=== PATIENT | female | born 1995 | race Caucasian/White ===

== ENCOUNTER 2018-02-11 12:23 | Emergency (ER) | payer SELFPAY ==
[2018-02-11 12:34] VITALS: BP 110/66
--- NOTE | 2018-02-11 15:48 | UC ---
Mansoor Jung Angela, scribed for Oswaldo De Santiago MD on 02/11/18 at 1248 . Skin Complaint HPI - HPI Summary HPI Summary: This pt is a 22 y/o female presenting to [facility] c/o raised area under right arm since last night. Pt notes that this "lump" is painful and red. She states that she noticed this lump last night. Denies drainage, fever, chills, nausea, vomiting. - History of Current Complaint Chief Complaint: UCSkin Time Seen by Provider: 02/11/18 12:39 Stated Complaint: RIGHT LUMP UNDER ARM Hx Obtained From: Patient Hx Last Menstrual Period: on BCP Onset/Duration: Lasting Hours, Still Present Current Severity: Moderate Pain Intensity: 5 Pain Scale Used: 0-10 Numeric Location: Other - under right arm Character: Pain, Redness, Raised Aggravating Factor(s): Nothing Alleviating Factor(s): Nothing Associated Signs & Symptoms: Positive: Tenderness. Negative: Nausea, Vomiting, Fever, Chills, Drainage - Allergy/Home Medications Allergies/Adverse Reactions: Allergies Allergy/AdvReac Type Severity Reaction Status Date / Time No Known Allergies Allergy Verified 02/11/18 12:34 Review of Systems Constitutional: Negative Skin: Other - lump under right arm, painful and red Eyes: Negative ENT: Negative Respiratory: Negative Cardiovascular: Negative Gastrointestinal: Negative Genitourinary: Negative Motor: Negative Neurovascular: Negative Musculoskeletal: Negative Neurological: Negative Psychological: Negative All Other Systems Reviewed And Are Negative: Yes PMH/Surg Hx/FS Hx/Imm Hx Other Endocrine History: DENIES: diabetes Other Cardiovascular History: DENIES: HTN Respiratory History: Asthma - Surgical History Surgical History: None Surgery Procedure, Year, and Place: R lumpectomy - Family History Known Family History: Positive: Cardiac Disease, Other - BREAST CANCER, MOTHER WITH BRAIN CYST Family History: BREAST CA, BRAIN CYST IN MOTHER, CAD - Social History Alcohol Use: None Substance Use Type: None Smoking Status (MU): Never Smoked Tobacco - Immunization History Most Recent Influenza Vaccination: 2013/2014 season Vaccination Up to Date: Yes Physical Exam - Summary Physical Exam Summary: VITAL SIGNS: Reviewed. GENERAL: Patient is a well-developed and nourished female who is lying comfortable in the stretcher. Patient is not in any acute respiratory distress. HEAD AND FACE: Normocephalic EYES: PERRLA, EOMI x 2. EARS: Hearing grossly intact. MOUTH: Oropharynx within normal limits. NECK: Supple, trachea is midline, no adenopathy, no JVD, no carotid bruit. CHEST: Symmetric, no tenderness at palpation LUNGS: Clear to auscultation bilaterally. No wheezing or crackles. CVS: Regular rate and rhythm, S1 and S2 present, no murmurs or gallops appreciated. ABDOMEN: Soft, non-tender. Bowel sounds are normal. No abdominal abnormal pulsations. EXTREMITIES: Full ROM in all major joints, no edema, no cyanosis or clubbing. NEURO: Alert and oriented x 3. No acute neurological deficits. Speech is normal and follows commands. SKIN: Dry and warm. RUE: induration under the right arm that is tender. There is redness and thickening of the skin. No abscess formation yet. Triage Information Reviewed: Yes Vital Signs: Initial Vital Signs Temp 98.6 F 02/11/18 12:31 Pulse 74 02/11/18 12:31 Resp 16 02/11/18 12:31 BP 110/66 02/11/18 12:31 Pulse Ox 100 02/11/18 12:31 Vital Signs Reviewed: Yes Course/Dx - Course Course Of Treatment: Pt is a 22 y/o female who presents with lump under right arm since last night. Pt notes that this site is painful and red. She states that she noticed this lump last night. Denies drainage, fever, chills, nausea, vomiting. On exam pt has induration under the right arm that is tender. There is redness and thickening of the skin. There is NO abscess formation. Pt will be given a prescription for Keflex. She will be discharged to home with follow up from PCP. Pt was instructed to return to the urgent care or go to ER immediately if any of the symptoms return or worsens. Plan of care was discussed with the patient and pt understands and agrees. All questions were answered to patient satisfaction. There were no further complaints or concerns. Pt is hemodynamically stable, alert and oriented x3. - Diagnoses Provider Diagnoses: Cellulitis Discharge - Sign-Out/Discharge Documenting (check all that apply): Discharge/Admit/Transfer - Discharge - Discharge Plan Condition: Stable Disposition: HOME Prescriptions: Cephalexin CAP* [Keflex CAP*] 500 mg PO QID #40 cap Patient Education Materials: Cellulitis (ED) Referrals: Harper RN [employer]IN [employer] MEMBER,Katiuska [Primary Care Provider] - Additional Instructions: Take medications as instructed Return to the UC if symptoms worsen The documentation as recorded by the Mansoor estrada Angela accurately reflects the service I personally performed and the decisions made by me, Oswaldo De Santiago MD.
== END 2018-02-11 12:58 | disposition home or self-care (01) ==
LOC: UCEAST 12:23
DX: L03.113 Cellulitis of right upper limb (principal); J45.909 Unspecified asthma, uncomplicated; Z82.49 Family history of ischemic heart disease and other diseases of the circulatory system; Z80.3 Family history of malignant neoplasm of breast
CPT/HCPCS: 99211; G0463

== ENCOUNTER 2018-02-17 14:57 | Emergency (ER) | payer SELFPAY ==
[2018-02-17 15:35] VITALS: BP 124/74
[2018-02-17] MEDS ORDERED: Lidocaine/Epineph/Tetraca SOL* (LET solution) 4 ML BTL TOPICAL ONE (15:45)
--- NOTE | 2018-02-17 15:52 | UC ---
Skin Complaint HPI - HPI Summary HPI Summary: PATIENT SEEN FOR DEVELOPING ABSCESS IN RIGHT AXILLA 6 DAYS AGO. PLACED ON KEFLEX. SINCE THEN LESION HAS INCREASED IN SIZE AND BECOME MORE PAINFUL. NO FEVER. NO DRAINAGE. - History of Current Complaint Chief Complaint: UCSkin Time Seen by Provider: 02/17/18 15:32 Stated Complaint: ARM INJURY Hx Obtained From: Patient Hx Last Menstrual Period: has control implant Onset/Duration: Gradual Onset, Lasting Days, Still Present Timing: Constant Onset Severity: Moderate Current Severity: Moderate Pain Intensity: 8 Pain Scale Used: 0-10 Numeric Location: Other - RIGHT AXILLA Character: Redness, Raised, Painful Aggravating Factor(s): Touch Alleviating Factor(s): Nothing Associated Signs & Symptoms: Positive: Tenderness. Negative: Fever - Allergy/Home Medications Allergies/Adverse Reactions: Allergies Allergy/AdvReac Type Severity Reaction Status Date / Time No Known Allergies Allergy Verified 02/17/18 15:35 Review of Systems Constitutional: Negative Skin: Other - ABSCESS RIGHT AXILLA Respiratory: Negative Cardiovascular: Negative Gastrointestinal: Negative All Other Systems Reviewed And Are Negative: Yes PMH/Surg Hx/FS Hx/Imm Hx Respiratory History: Asthma - Surgical History Surgical History: None Surgery Procedure, Year, and Place: R lumpectomy - Family History Known Family History: Positive: Cardiac Disease, Hypertension, Other - BREAST CANCER, MOTHER WITH BRAIN CYST Family History: BREAST CA, BRAIN CYST IN MOTHER, CAD - Social History Alcohol Use: None Substance Use Type: None Smoking Status (MU): Never Smoked Tobacco - Immunization History Most Recent Influenza Vaccination: season Vaccination Up to Date: Yes Physical Exam Triage Information Reviewed: Yes Appearance: Well-Appearing, No Pain Distress, Well-Nourished Vital Signs: Initial Vital Signs Temp 98.6 F 02/17/18 15:30 Pulse 76 02/17/18 15:30 Resp 18 02/17/18 15:30 BP 124/74 02/17/18 15:30 Pulse Ox 100 02/17/18 15:30 Vital Signs Reviewed: Yes Eyes: Positive: Conjunctiva Clear ENT: Positive: Hearing grossly normal Neck: Positive: Supple Respiratory: Positive: No respiratory distress, No accessory muscle use Cardiovascular: Positive: Pulses Normal Abdomen Description: Positive: Soft Musculoskeletal: Positive: No Edema Neurological: Positive: Alert Psychological: Positive: Age Appropriate Behavior Skin: Positive: Other - 4CM X 3CM TENDER INDURATED LESION RIGHT AXILLA WITH CENTRAL FLUCTUANCE. Course/Dx - Course Course Of Treatment: AXILLA CLEANSED AND TOPICAL LET APPLIED. 11 BLADE USED TO INCISE ABSCESS. PUS EXPRESSED. SPECIMEN SENT FOR CX. PLAIN PACKING. STOP KEFLEX. START BACTRIM. HOT COMPRESSES. - Diagnoses Provider Diagnoses: I&D OF ABSCESS RIGHT AXILLA Procedures - Incision and Drainage Right Axilla Anesthesia: Topical Instrument(s): Scalpel - 11 BLADE Packing: Gauze Discharge - Sign-Out/Discharge Documenting (check all that apply): Discharge/Admit/Transfer - Discharge Plan Condition: Stable Disposition: HOME Prescriptions: Sulfamethox/Trimethoprim DS* [Bactrim DS 800/160 TAB*] 1 tab PO BID #20 tab Patient Education Materials: Abscess (ED) Forms: *Work Release Referrals: Harper IZQUIERDO RET[employer] BUSINESS ANALYSTKatiuska [Primary Care Provider] - If Needed Additional Instructions: LEAVE THE PACKING IN FOR 24 HOURS THEN REMOVE AND TAKE A HOT SHOWER. HOT SOAKS/ COMPRESSES 4 TIMES DAILY. KEEP THE AREA CLEAN AND DRY. STOP THE KEFLEX AND START THE BACTRIM TWICE DAILY FOR A FULL 10 DAYS. CHANGE BANDAGE DAILY AND NEEDED IF BECOMES SOILED OR WET SPECIMEN SENT FOR CULTURE. SEEK FOLLOW-UP IF YOU DEVELOP SPREADING REDNESS OF THE SKIN, PERSISTENT PURULENT DRAINAGE, FEVER, INCREASED PAIN OR ANY OTHER CONCERNING SYMPTOMS. - Billing Disposition and Condition Condition: STABLE Disposition: Home
[2018-02-17] MEDS ORDERED: Sulfamethox/Trimethoprim DS 800/160* TAB PO ONE (16:34)
--- NOTE | 2018-02-19 13:19 | UC ---
- Progress Note Progress Note: MRSA + Pt on Bactrim await sensitivity Sangj 02/19/2018 Discharge - Sign-Out/Discharge Documenting (check all that apply): Post-Discharge Follow Up - Discharge Plan Condition: Stable Disposition: HOME Prescriptions: Sulfamethox/Trimethoprim DS* [Bactrim DS 800/160 TAB*] 1 tab PO BID #20 tab Patient Education Materials: Abscess (ED) Forms: *Work Release Referrals: Harper FOFANAP,Katiuska [Primary Care Provider] - If Needed Additional Instructions: LEAVE THE PACKING IN FOR 24 HOURS THEN REMOVE AND TAKE A HOT SHOWER. HOT SOAKS/ COMPRESSES 4 TIMES DAILY. KEEP THE AREA CLEAN AND DRY. STOP THE KEFLEX AND START THE BACTRIM TWICE DAILY FOR A FULL 10 DAYS. CHANGE BANDAGE DAILY AND NEEDED IF BECOMES SOILED OR WET SPECIMEN SENT FOR CULTURE. SEEK FOLLOW-UP IF YOU DEVELOP SPREADING REDNESS OF THE SKIN, PERSISTENT PURULENT DRAINAGE, FEVER, INCREASED PAIN OR ANY OTHER CONCERNING SYMPTOMS. - Billing Disposition and Condition Condition: STABLE Disposition: Home
== END 2018-02-17 16:50 | disposition home or self-care (01) ==
LOC: UCEAST 14:57
DX: L02.411 Cutaneous abscess of right axilla (principal)
CPT/HCPCS: 10060; 87070; 87077; 87186; 87205; 87640; 87641; 99212; A9270-GY; G0463